=== PATIENT | female | born 1985 | race Two or more races ===

== ENCOUNTER 2021-03-05 18:38 | Emergency (ER) | payer SELFPAY ==
[~2021-03-05] VITALS: Ht 167.6 cm; Wt 95.5 kg
[2021-03-05 20:10] VITALS: BP 111/67
--- NOTE | 2021-03-05 20:51 | RAD ---
XR LUMBAR SPINE 2-3V History: Reason: fall, LOW BACK AND SACRUM PAIN / Spl. Instructions: / History: Comparison: None. Technique: 3 views of the lumbar spine. Findings: There are 5 non-rib bearing lumbar vertebral segments. There is no evidence of fracture. Alignment is normal. No destructive osseous lesions are seen. No significant facet disease. Mild disc space narrowing L5-S1. Sacroiliac joints are unremarkable. Soft tissues are unremarkable. IMPRESSION: 1. No acute osseous abnormality of the lumbar spine. Electronically signed by: Fermin Khan MD (03/05/2021 8:49 PM) [facility]
--- NOTE | 2021-03-05 20:52 | RAD ---
XR HAND_RIGHT 3 VIEWS History: Fall, thumb pain. Comparison: None. Technique: 3 views the right hand. Findings: Osseous mineralization is normal. No fracture or dislocaton. No significant degenerative changes. Sof t tissues are unremarkable. Impression: 1. No acute osseous abnormality of the right hand. Electronically signed by: Fermin Khan MD (03/05/2021 8:50 PM) [facility]
--- NOTE | 2021-03-05 21:09 | PHYS DOC ---
Past History Past Surgical History: Other Additional Past Surgical Histo: BX CARPAL TUNNEL General Adult EDM: Chief Complaint: BACK PAIN OR INJURY HPI: HPI: Patient is a 35-year-old female who presents with lower back pain. Patient states 2 weeks ago she was rollerskating when she slipped and fell and hurt her tailbone and also her right thumb. Patient states that pain is worse with walking and when she tries to put on her pants and lifts her leg. Patient states she is been taking [id number] pain medication which is helped. Patient is also been using ice and using a pillow which she also reports has relieved symptoms. She still has full range of motion of her right hand and thumb. Denies urinary retention or loss of bowel. Denies medical history. Review of Systems: Review of Systems: Constitutional: Denies fever or chills Eyes: Denies change in visual acuity HENT: Denies nasal congestion or sore throat Respiratory: Denies cough or shortness of breath Cardiovascular: Denies chest pain or edema GI: Denies abdominal pain, nausea, vomiting, bloody stools or diarrhea : Denies dysuria Musculoskeletal: Reports lower back pain, right thumb pain Integument: Denies rash Neurologic: Denies headache, focal weakness or sensory changes Endocrine: Denies polyuria or polydipsia Lymphatic: Denies swollen glands Psychiatric: Denies depression or anxiety Allergies: Allergies: Allergies Coded Allergies Type Severity Reaction Last Updated Verified No Known Drug Allergies 03/05/21 No Physical Exam: PE: Constitutional: Well developed, well nourished, no acute distress, non-toxic appearance. [] HENT: Normocephalic, atraumatic, bilateral external ears normal, oropharynx moist, no oral exudates, nose normal. [] Eyes: PERRLA, EOMI, conjunctiva normal, no discharge. [] Neck: Normal range of motion, no tenderness, supple, no stridor. [] Cardiovascular:Heart rate regular rhythm, no murmur [] Lungs & Thorax: Bilateral breath sounds clear to auscultation [] Abdomen: Bowel sounds normal, soft, no tenderness, no masses, no pulsatile masses. [] Skin: Warm, dry, no erythema, no rash. [] Back: Lower back tenderness Extremities: Right thumb tenderness, no cyanosis, no clubbing, ROM intact, no edema. [] Neurologic: Alert and oriented X 3, normal motor function, normal sensory function, no focal deficits noted. [] Psychologic: Affect normal, judgement normal, mood normal. [] Current Patient Data: Vital Signs: Vital Signs Date Time Temp Pulse Resp B/P (MAP) Pulse Ox O2 Delivery O2 Flow Rate FiO2 03/05/21 20:10 97.5 63 18 111/67 100 Room Air EKG: EKG: [] Radiology/Procedures: Radiology/Procedures: []XR HAND_RIGHT 3 VIEWS History: Fall, thumb pain. Comparison: None. Technique: 3 views the right hand. Findings: Osseous mineralization is normal. No fracture or dislocaton. No significant degenerative changes. Soft tissues are unremarkable. Impression: 1. No acute osseous abnormality of the right hand. Electronically signed by: Fermin Khan MD (03/05/2021 8:50 PM) [facility] XR LUMBAR SPINE 2-3V History: Reason: fall, LOW BACK AND SACRUM PAIN / Spl. Instructions: / History: Comparison: None. Technique: 3 views of the lumbar spine. Findings: There are 5 non-rib bearing lumbar vertebral segments. There is no evidence of fracture. Alignment is normal. No destructive osseous lesions are seen. No significant facet disease. Mild disc space narrowing L5-S1. Sacroiliac joints are unremarkable. Soft tissues are unremarkable. IMPRESSION: 1. No acute osseous abnormality of the lumbar spine. Electronically signed by: Fermin Khan MD (03/05/2021 8:49 PM) [facility] Heart Score: C/O Chest Pain: No Risk Factors: Risk Factors: DM, Current or recent (<one month) smoker, HTN, HLP, family history of CAD, obesity. Risk Scores: Score 0 - 3: 2.5% MACE over next 6 weeks - Discharge Home Score 4 - 6: 20.3% MACE over next 6 weeks - Admit for Clinical Observation Score 7 - 10: 72.7% MACE over next 6 weeks - Early Invasive Strategies Course & Med Decision Making: Course & Med Decision Making Pertinent Labs and Imaging studies reviewed. (See chart for details) [] 35-year-old female presents with lower back pain and right thumb pain after injuring herself while skating. Patient states that she tripped and fell. Patient still has full range of motion of her hand and her thumb. Radial pulses intact. X-ray of right hand was negative for any acute abnormality. Patient's reporting that lower back pain is worse with walking and trying to lift her leg to put on pants. Denies urinary retention or loss of bowel. Lumbar x-ray ordered which was negative for fracture. Explained to patient she most likely bruised her tailbone and it would take time to heal. Patient continue to use ice, pillow or donut when sitting. Ibuprofen for discomfort. Advised patient to follow-up with PCP if pain continues. Dragon Disclaimer: Dragon Disclaimer: This electronic medical record was generated, in whole or in part, using a voice recognition dictation system. Departure Departure: Impression: Primary Impression: Tail bone pain Disposition: 01 HOME / SELF CARE / HOMELESS Condition: STABLE Referrals: PCP,[facility] (PCP) Patient Instructions: Tailbone Injury, [id number] Additional Instructions: You are seen in the emergency room for lower back pain and right hand pain. Your right hand x-ray was negative for fracture. X-ray of your lower back is negative for fracture. You most likely bruised her tailbone which will take some time to heal. Trying to continue using ice, pillow or a donut while sitting, ibuprofen for pain. Follow-up with your PCP for further management. Please return to emergency room with worsening symptoms or concerns. EMERGENCY DEPARTMENT GENERAL DISCHARGE INSTRUCTIONS Thank you for coming to [facility] (ED) today and trusting us with you care. We trust that you had a positivie experience in our Emergency Department. If you wish to speak to the department management, you may call the director at [phone]. YOUR FOLLOW UP INSTRUCTIONS ARE FOLLOWS: 1. Do you have a private Doctor? If you do not have a private doctor, please ask for a resource list of physicians or clinics that may be able to assist you with follow up care. 2. The Emergency Physician has interpreted your x-rays. The X-Ray specialist will also review them. If there is a change in the findings, you will be notified in 48 hours when at all possible. 3. A lab test or culture has been done, your results will be reviewed and you will be notified if you need a change in treatment. ADDITIONAL INSTRUCTIONS AND INFORMATION: 1. Your care today has been supervised by a physician who is specially trained in emergency care. Many problems require more than one evaluation for a complete diagnosis and treatment. We recommend that you schedule your follow up appointment as recommended to ensure complete treatment of you illness or injury. If you are unable to obtain follow up care and continue to have a problem, or if your condition worsens, we recommend that you return to the ED. 2. We are not able to safely determine your condition over the phone nor are we able to give sound medical advice over the phone. For these safety reasons, if you call for medical advice we will ask you to come to the ED for further evaluation. 3. If you have any questions regarding these discharge instructions please call the ED at [phone]. SAFETY INFORMATION: In the interest of safety, wellness, and injury prevention; we encourage you to wear your sealbelt, if you smoke; quite smoking, and we encourage family to use a protective helmet for bicycling and other sporting events that present an increased risk for head injury. IF YOUR SYMPTOMS WORSEN OR NEW SYMPTOMS DEVELOP, OR YOU HAVE CONCERNS ABOUT YOUR CONDITION; OR IF YOUR CONDITION WORSENS WHILE YOU ARE WAITING FOR YOUR FOLLOW UP APPOINTMENT; EITHER CONTACT YOUR PRIMARY CARE DOCTOR, THE PHYSICIAN WHOSE NAME AND NUMBER YOU WERE GIVEN, OR RETURN TO THE ED IMMEDIATELY. SUSAN RAMACHANDRAN APRN Mar 05, 2021 21:09
== END 2021-03-05 21:14 | disposition home or self-care (01) ==
LOC: ER 18:38
DX: M89.8X8 Other specified disorders of bone, other site (principal); M54.5 Low back pain; M79.644 Pain in right finger(s); V00.128A Other non-in-line roller-skating accident, initial encounter; Y93.89 Activity, other specified; Y92.89 Other specified places as the place of occurrence of the external cause; Y99.8 Other external cause status
CPT/HCPCS: 72100; 73130; 99284